=== PATIENT | male | born 1935 | race Caucasian/White ===

== ENCOUNTER → 2017-01-14 | Outpatient (CLI) | payer MEDICARE ==
[2017-01-14 20:05] LABS: Uric Acid 5.7 mg/dL (3.5-8.5)
[2017-01-14 20:40] LABS: Prostate Specific Antigen <0.10 ng/mL (0.00-4.00)
== END | disposition home or self-care (01) ==
LOC: MMGSC 13:32
PROVIDERS: ATTEND Family Medicine
DX: C61 Malignant neoplasm of prostate (principal); M10.9 Gout, unspecified
CPT/HCPCS: 36415; 84153; 84550

== ENCOUNTER → 2019-10-05 | Outpatient (CLI) | payer MEDICARE ==
--- NOTE | 2019-10-05 16:01 | US ---
EXAMINATION TYPE: US carotid duplex BILAT DATE OF EXAM: 10/05/2019 COMPARISON: NONE CLINICAL HISTORY: H53.2 Diplopia R42 Dizziness and giddiness. EXAM MEASUREMENTS: RIGHT: Peak Systolic Velocity (PSV) cm/sec ----- Right CCA: 87.2 ----- Right ICA: 53.7 ----- Right ECA: 83.9 ICA/CCA ratio: 0.6 RIGHT: End Diastole cm/sec ----- Right CCA: 18.6 ----- Right ICA: 20.2 ----- Right ECA: 8.8 LEFT: Peak Systolic Velocity (PSV) cm/sec ----- Left CCA: 64.0 ----- Left ICA: 61.2 ----- Left ECA: 79.6 ICA/CCA ratio: 0.6 LEFT: End Diastole cm/sec ----- Left CCA: 11.5 ----- Left ICA: 19.1 ----- Left ECA: 0.0 VERTEBRALS (direction of flow): Right Vertebral: Antegrade Left Vertebral: Antegrade Rhythm: Arrhythmia No significant velocity elevations, mild plaque. IMPRESSION: No evidence for hemodynamic significant stenosis Criteria for Assigning % of Stenosis / Diameter reduction (Estimation based on the indirect measurements of the internal carotid artery velocities (ICA PSV). 1. Normal (no stenosis)=ICA PSV < 125 cm/s: ratio < 2.0: ICA EDV<40 cm/s. 2. Less than 50% stenosis=ICA PSV < 125 cm/s: ratio < 2.0: ICA EDV<40 cm/s. 3. 50 to 69% stenosis=ICA PSV of 125 to 230 cm/s: ration 2.0 ? 4.0: ICA EDV 40-100 cm/s. 4. Greater than 70% stenosis to near occlusion= ICA PSV > 230 cm/s: ratio > 4.0: ICA EDV > 100 cm/s. 5. Near occlusion= ICA PSV velocities may be low or undetectable: variable ratio and ICA EDV. 6. Total occlusion=unable to detect flow.
== END | disposition home or self-care (01) ==
LOC: RADUSWWP 15:27
PROVIDERS: ATTEND Family Medicine
DX: H53.2 Diplopia (principal); R42 Dizziness and giddiness
CPT/HCPCS: 93880

== ENCOUNTER → 2020-12-25 | Outpatient (CLI) | payer MEDICARE ==
--- NOTE | 2020-12-26 16:08 | MR ---
EXAMINATION TYPE: MR brain wo/w con DATE OF EXAM: 12/25/2020 COMPARISON: None HISTORY: Leukemia/headache CONTRAST: Performed utilizing 7 mL intravenous Gadavist gadolinium contrast. TECHNIQUE: Multiplanar, multiecho imaging on a 3.0 Griselda magnet is performed through the brain. Stud y is performed within 24 hours of arrival to the hospital. The craniovertebral junction is normal. The pituitary is normal. Diffusion-weighted imaging is performed. No abnormal hyperintensity is present to suggest an acute i ntracranial infarct or acute ischemic change. Signal within the brain is largely normal. There are a few punctate white matter changes are present not out of proportion to the patient's age. This is nonspecific but could be related to microvascular ischemic change. Ventricles and sulci are compatible with some mild age-related atrophy. Vascular structures have norm al flow voids. No abnormal enhancement is evident. There is some mucosal thickening within the right frontal ethmoid air cells. This extends into the bi lateral frontal sinuses. These sinuses appear to be opacified. Mild mucosal thickening left anterior ethmoid air cells. IMPRESSIONS: 1. No acute intracranial process. Some mild age-related atrophy may be present. 2. Mucosal thickening and opacification of the anterior ethmoid air cells and frontal sinuses bilater ally. Correlate for sinusitis
== END | disposition home or self-care (01) ==
LOC: RADMRIMAIN 07:23
PROVIDERS: ATTEND Internal Medicine Hematology & Oncology
DX: C95.90 Leukemia, unspecified not having achieved remission (principal); R51.9 Headache, unspecified
CPT/HCPCS: 70553; A9585